=== PATIENT | male | born 1950 | race Caucasian/White ===

== ENCOUNTER → 2017-05-20 | Outpatient (CLI) | payer MEDICARE, MEDICAID | END | disposition home or self-care (01) | LOC: GMAL 10:44 | PROVIDERS: ATTEND Family Medicine | DX: Z12.5 Encounter for screening for malignant neoplasm of prostate (principal) ==

== ENCOUNTER → 2017-12-19 | Outpatient (CLI) | payer MEDICARE, MEDICAID | LOC: GMAL 10:16 | PROVIDERS: ATTEND Family Medicine | DX: D51.3 Other dietary vitamin B12 deficiency anemia (principal); R53.83 Other fatigue; E55.9 Vitamin D deficiency, unspecified ==